=== PATIENT | male | born 1985 ===

== ENCOUNTER 2018-12-01 22:45 | Inpatient (IN) | payer SELFPAY ==
[2018-12-01] MEDS ORDERED: CEFAZOLIN 1 GM VIAL ONE (22:50)
[2018-12-01] MEDS ORDERED: Adacel (T-DAP) 0.5 ML SYRINGE ONE (22:50)
[2018-12-01] MEDS ORDERED: Ketamine 50 MG/ML (10ML VIAL) ONE (22:54)
[2018-12-01] MEDS ORDERED: Succinylcholine Chloride 20 MG/ML 10 ml SYRINGE FS ONE (22:58)
[2018-12-01] MEDS ORDERED: Propofol 1,000 MG/100 ML VIAL IV ONE (23:18)
--- NOTE | 2018-12-01 23:21 | RAD ---
FFrontal radiograph chest 12/01/2018 COMPARISON: None HISTORY: Intubated patient FINDINGS: Endotracheal tube terminates at the level the clavicular heads. Enteric tube extends into t he left upper quadrant. Supine imaging limits assessment for pneumothorax and pleural fluid. No focal consolidation or alveolar edema. IMPRESSION: Lines and tubes as above.
[2018-12-01 23:22] LABS: #Basophils 0.1 thou/uL (0.0-0.2); #Eosinphils 0.4 thou/uL (0.0-0.7); #Lymphocytes 3.5 thou/uL (1.20-3.40); #Monocytes 0.7 thou/uL (0.11-0.59); #Neutrophils 5.5 thou/uL (1.40-6.50); %Basophils 0.9 % (0.0-1.0); %Eosinophils 3.6 % (0.0-10.0); %Lymphocytes 34.8 % (21.0-51.0); %Monocytes 6.4 % (0.0-10.0); %Neutrophils 54.2 % (42.0-75.0); Mean Corpuscular Hemoglobin 31.7 pg (27.0-31.0); Mean Corpuscular Volume 90.7 fL (78.0-98.0); Mean Platelet Volume 6.7 fL (7.4-10.4); Platelet Count 350 thou/uL (130-400); RBC Distribution Width 11.4 % (11.5-14.5); Red Blood Cell (RBC) Count 5.03 mill/uL (4.70-6.10); White Blood Cell (WBC) Count 10.2 thou/uL (4.8-10.8)
--- NOTE | 2018-12-01 23:22 | RAD ---
F2 views of the left elbow: 12/01/2018 COMPARISON: None HISTORY: Injury, trauma, pain FINDINGS: Soft tissue injury is seen medially and posteriorly at the level of the elbow joint with so ft tissue swelling and probable laceration. Markedly comminuted and displaced fracture is seen medial ly involving the distal left humerus. On lateral examination there is a posteriorly displaced fractur e fragment measuring 1.1 cm. No evidence for elbow dislocation. IMPRESSION: Findings suggesting a markedly comminuted open fracture of the distal left humerus medial ly.
[2018-12-01] MEDS ORDERED: Fentanyl 100 MCG/2 ML VIAL ONE (23:37)
[2018-12-01 23:40] LABS: Acetaminophen Less than 6.0 mcg/mL (10.0-30.0); Alcohol 284 mg/dL (Less than 10); Salicylate Less than 8.0 mg/dL (15.0-30.0)
[2018-12-01 23:46] LABS: ALT (SGPT) 43 U/L (8-55); AST (SGOT) 41 U/L (5-34); Albumin 4.1 g/dL (3.5-5.0); Alkaline Phosphatase 104 U/L (40-150); Anion Gap 15 mmol/L (10-20); BUN (Urea Nitrogen) 10 mg/dL (8.9-20.6); Bilirubin, Total 0.4 mg/dL (0.2-1.2); Calc. Creatinine Clearance 0 mL/min (70-130); Calcium 8.6 mg/dL (7.8-10.44); Carbon Dioxide 22 mmol/L (22-29); Chloride 107 mmol/L (98-107); Estimated GFR-MDRD Greater than 90; Globulin 2.6 g/dL (2.4-3.5); Glucose 123 mg/dL (70-105); Potassium 3.8 mmol/L (3.5-5.1); Protein, Total 6.7 g/dL (6.0-8.3); Sodium 140 mmol/L (136-145)
[2018-12-01 23:53] LABS: Actual Bicarbonate (HCO3a) 20.3 mEq/L (22-28); Analyzer IN Cardio ER; Base Excess (BEa) -4.9 mEq/L (-2.0 to +3.0); CO2 Tension 38.4 mmHg (35.0-45.0); Calcium, Ionized 1.11 mmol/L (1.12-1.30); Carboxyhemoglobin (COHb) 0.9 gm% (0.0-3.0); O2 Tension (PaO2) 112.4 mmHg (80.0-100.0); Potassium - ABG Lab 3.89 mmol/L (3.70-5.30); pH, Arterial 7.34 (7.35-7.45)
[2018-12-02 00:11] LABS: Puncture Site LRA
[2018-12-02 00:38] LABS: Amphetamine Not Detected (NotDetected); Barbiturates Screen Not Detected (NotDetected); Benzodiazepine Screen Not Detected (NotDetected); Cocaine Metabolite Screen Not Detected (NotDetected); Medtox Control Line Valid? VALID (VALID); Medtox Reader # READER 4; Methadone Not Detected (NotDetected); Methamphetamine Not Detected (NotDetected); Opiate Screen Not Detected (NotDetected); Oxycodone Screen Not Detected (NotDetected); Phencyclidine (PCP) Not Detected (NotDetected); THC/Cannabinoid Screen Not Detected (NotDetected); Tricyclic Screen Not Detected (NotDetected)
[2018-12-02] MEDS ORDERED: Promethazine HCl 25 MG/ML VIAL IM PRN (00:45)
[2018-12-02] MEDS ORDERED: Ondansetron PF 4 MG/2 ML Vial IVP PRN (00:45)
[2018-12-02] MEDS ORDERED: Dextrose 50% Abboject 50 ML SYRINGE SLOW IVP PRN (00:45)
[2018-12-02] MEDS ORDERED: Dextrose 5% in Water 1,000 ML IV PRN (00:45)
[2018-12-02] MEDS ORDERED: hydrALAZINE 20 MG/ML VIAL SLOW IVP PRN (00:45)
[2018-12-02] MEDS: Sodium Chloride 0.9% 1,000 ML IV SCH ×4 (00:48→19:38)
[2018-12-02] MEDS ORDERED: Fentanyl BOLUS 250 ML IVPB PRN (01:07)
[2018-12-02] MEDS ORDERED: Morphine 2 MG/ML SYRINGE SLOW IVP PRN (01:07)
[2018-12-02] MEDS ORDERED: DISCONTINUE PREVIOUS NARCOTIC PAIN MEDICATIONS AND BENZODIAZEPINES FS SCH (01:07)
[2018-12-02] MEDS ORDERED: Propofol BOLUS 1,000 MG/100 ML VIAL IV PRN (01:07)
[2018-12-02] MEDS ORDERED: Calcium Chloride 1 GM/10 ML Abboject SYRINGE IVP SCH (01:15)
[2018-12-02] MEDS ORDERED: Ventilator Sedation Protocol 1 EACH FS SCH (01:15)
[2018-12-02 01:22] LABS: Magnesium 2.4 mg/dL (1.6-2.6); Phosphorus 3.5 mg/dL (2.3-4.7)
[2018-12-02] MEDS: Lorazepam 2 MG/ML VIAL SLOW IVP PRN ×4 (01:22→22:26)
[2018-12-02] MEDS: fentaNYL Citrate/PF 2,000 MCG in Sodium Chloride 0.9% 60 ML IV SCH ×2 (01:26→23:16)
[2018-12-02 01:29] LABS: Lactic Acid 2.1 mmol/L (0.5-2.2)
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
[2018-12-02 05:32] LABS: INR-International Normal Ratio 1.1
[2018-12-02] MEDS: Propofol 1,000 MG/100 ML VIAL IV PRN ×3 (05:32→19:52)
[2018-12-02] MEDS ORDERED: Acetaminophen 1,000 MG in Premix Bag 1 BAG IVPB SCH (07:00)
[2018-12-02] MEDS ORDERED: Fentanyl 100 MCG/2 ML VIAL ONE ×2 (07:12→08:16)
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
[2018-12-02] MEDS: Famotidine/PF 20 mg/2ml Vial SLOW IVP SCH ×2 (08:06→19:38)
[2018-12-02] MEDS ORDERED: Neomycin-Polymyxin 1 ML AMP ONE (08:12)
[2018-12-02] MEDS ORDERED: Midazolam HCl 2 mg/2 ml Vial ONE (08:16)
[2018-12-02] MEDS: CEFAZOLIN 2 GM in Premix Bag 1 BAG IVPB SCH ×2 (08:22→16:32)
--- NOTE | 2018-12-02 09:24 | RAD ---
LEFT HAND 3 VIEWS: Date: 12/02/18 HISTORY: Hand injury. FINDINGS: Soft tissue injury to the tip of the middle finger is seen. I do not see any underlying fracture. IMPRESSION: No evidence of fracture. POS: JÚNIOR
--- NOTE | 2018-12-02 09:38 | RAD ---
PORTABLE CHEST: DATE: 12/02/2018. PROVIDED CLINICAL HISTORY: Respiratory insufficiency. FINDINGS: Comparison 12/01/2018. Significant interval change with respect to the prior examination is not apparent. IMPRESSION: As above. POS: OFF
[2018-12-02] MEDS ORDERED: PROPOFOL 200 MG/20 ML VIAL ONE (10:39)
[2018-12-02] MEDS ORDERED: Rocuronium Bromide 10 MG/ML (10ML VIAL) ONE (10:39)
--- NOTE | 2018-12-02 11:36 | CT ---
FCT Upper Ext Lt WO Con History: Trauma to elbow Comparison: Plain film examination done yesterday. Findings: There is air present within the joint space with associated soft tissue injury. There is no evidence of elbow dislocation. The radiocapitellar joint is in normal alignment. There is an avulsive type fracture which is a thin linear fragment of bone, the donor site appears to be from the ulnar side of the olecranon, it is minimally displaced. There are tiny bony avulsions related to the lateral epicondyle of the distal humerus, this would sug gest a partial avulsion of the common extensor tendon. . There is a larger bony avulsion arising from the medial epicondyle of the humerus, this bone fragment is approximately 2 cm in size. It is avulsed by approximately 4 mm. This appears to arise from the m ore posterior aspect of the medial epicondyle. The fracture probably still does involve the common fl exor tendon origin and possibly the proximal attachment of the UCL. Impression: Elbow fractures as described above.
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
[2018-12-02] MEDS ORDERED: CEFAZOLIN 2 GM in Premix Bag 1 BAG IVPB SCH (14:00)
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
[2018-12-02] MEDS: Acetaminophen 1,000 MG in Premix Bag 1 BAG IVPB SCH ×2 (16:51→23:16)
[2018-12-02] MEDS: Ketorolac Tromethamine 30 MG/ML VIAL IVP SCH ×2 (16:51→23:16)
[2018-12-02 18:10] LABS: Bilirubin Negative (Negative); Blood, Urine Negative (Negative); Clarity CLEAR (Clear); Glucose, Urine (Dipstick) Negative (Negative); Leukocyte Small (Negative); Nitrite Negative (Negative); Protein, Urine (Dipstick) Negative (Neg-Trace); Specific Gravity, Urine 1.029 (1.002-1.036); Urobilinogen 0.2 mg/dL (0.2-1.0)
[2018-12-02 18:12] LABS: Bacteria/HPF None Seen HPF (None Seen); Hyaline Casts/LPF 0-3 HYALINE CAST LPF (0-3 Hyaline); Pathc Cast-AUWi Flag 0.13 (0-2.49); Squamous Epithelial 0-3 HPF (0-3)
[2018-12-02 18:16] LABS: Urine Culture Reflex Yes Yes
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
[2018-12-03] MEDS: CEFAZOLIN 2 GM in Premix Bag 1 BAG IVPB SCH ×4 (00:07→22:25)
[2018-12-03] MEDS: Propofol 1,000 MG/100 ML VIAL IV PRN ×2 (00:21→05:48)
[2018-12-03] MEDS: Sodium Chloride 0.9% 1,000 ML IV SCH ×3 (02:53→18:16)
[2018-12-03] MEDS: Acetaminophen 1,000 MG in Premix Bag 1 BAG IVPB SCH ×2 (05:04→11:46)
[2018-12-03] MEDS: Ketorolac Tromethamine 30 MG/ML VIAL IVP SCH ×2 (05:04→11:46)
[2018-12-03 06:44] LABS: #Basophils 0.1 thou/uL (0.0-0.2); #Eosinphils 0.3 thou/uL (0.0-0.7); #Lymphocytes 1.9 thou/uL (1.20-3.40); #Monocytes 0.7 thou/uL (0.11-0.59); #Neutrophils 3.8 thou/uL (1.40-6.50); %Basophils 0.8 % (0.0-1.0); %Lymphocytes 28.1 % (21.0-51.0); %Monocytes 10.5 % (0.0-10.0); %Neutrophils 55.6 % (42.0-75.0); Hemoglobin 11.3 g/dL (14.0-18.0); Mean Corpuscular HGB CONC 35.5 g/dL (32.0-36.0); Mean Corpuscular Hemoglobin 32.6 pg (27.0-31.0); Platelet Count 177 thou/uL (130-400); RBC Distribution Width 11.2 % (11.5-14.5); Red Blood Cell (RBC) Count 3.47 mill/uL (4.70-6.10); White Blood Cell (WBC) Count 6.9 thou/uL (4.8-10.8)
[2018-12-03 06:46] LABS: INR-International Normal Ratio 1.1; Prothrombin Time 14.1 SEC (12.0-14.7)
[2018-12-03 07:08] LABS: Anion Gap 12 mmol/L (10-20); BUN (Urea Nitrogen) 18 mg/dL (8.9-20.6); Calc. Creatinine Clearance 126 mL/min (70-130); Calcium 7.8 mg/dL (7.8-10.44); Carbon Dioxide 19 mmol/L (22-29); Chloride 109 mmol/L (98-107); Estimated GFR-MDRD Greater than 90; Glucose 86 mg/dL (70-105); Phosphorus 2.6 mg/dL (2.3-4.7); Potassium 3.6 mmol/L (3.5-5.1); Sodium 136 mmol/L (136-145)
[2018-12-03] MEDS ORDERED: Fentanyl 100 MCG/2 ML VIAL ONE ×2 (07:36→09:56)
[2018-12-03] MEDS ORDERED: Famotidine/PF 20 mg/2ml Vial ONE (07:36)
[2018-12-03] MEDS ORDERED: Neomycin-Polymyxin 1 ML AMP ONE ×2 (07:37→09:27)
--- NOTE | 2018-12-03 08:06 | RAD ---
FRadiograph chest one view: 12/03/2018 4:34 AM HISTORY: 33 year old male status post intubation COMPARISON: 12/02/2018 4:55 AM FINDINGS: Endotracheal tube and NG tube remain. No cardiomegaly. Mild infiltrate like density at right base cou ld represent subsegmental atelectasis or early pneumonia. This appears minimally worse than before. N o other interval change. No pneumothorax. IMPRESSION: Mild pulmonary density at right base has minimally worsened. No other interval change.
[2018-12-03] MEDS ORDERED: Ondansetron PF 4 MG/2 ML Vial ONE (09:50)
[2018-12-03] MEDS ORDERED: Rocuronium Bromide 10 MG/ML (10ML VIAL) ONE (09:50)
[2018-12-03] MEDS ORDERED: Midazolam HCl 2 mg/2 ml Vial ONE (09:56)
[2018-12-03] MEDS: Famotidine/PF 20 mg/2ml Vial SLOW IVP SCH ×2 (10:44→22:25)
--- NOTE | 2018-12-03 12:58 | PRG ---
DATE OF SERVICE: 12/03/2018 SUBJECTIVE: Mr. Saldaña is in no distress. OBJECTIVE: VITAL SIGNS: Heart rates in the 60s to 100 range, blood pressure 133/78, respiratory rates in the teens. NEURO: He follows commands now. He is cooperative. LUNGS: Clear. HEART: Regular rhythm. ABDOMEN: Soft. EXTREMITIES: Without edema. He went back to the OR today, was left intubated. LABORATORY DATA: White count 6.9, hemoglobin 11.3, and platelets 177,000. Sodium 136, potassium 3.6, chloride 109, bicarb 19, BUN 18, and creatinine 0.77. Chest x-ray is clear. IMPRESSION: Respiratory failure secondary to intubation in the field secondary to severe alcohol intoxication, psychotic behavior, appears to be calm and cooperative now. We will do a leak test. His minute volume is less than 10 L a minute. He has no secretion issues. He is otherwise young and healthy with a clear chest x-ray now, so he should extubate relatively quickly. CRITICAL CARE TIME: 30 minutes. Job ID: [id number]
[2018-12-03] MEDS ORDERED: traMADol HCl 50 MG TAB PO PRN ×2 (14:31)
[2018-12-03] MEDS ORDERED: Cyclobenzaprine 10 MG TAB PO PRN (14:31)
[2018-12-03] MEDS ORDERED: HYDROcodone/Acetaminophen 5/325 mg Tablet PO PRN (14:34)
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
[2018-12-03] MEDS: Acetaminophen 500 MG TAB PO SCH (18:16)
[2018-12-03] MEDS: Ibuprofen 800 MG TAB PO SCH (22:24)
[2018-12-04] MEDS: Acetaminophen 500 MG TAB PO SCH ×5 (00:58→23:52)
[2018-12-04] MEDS: Piperacillin/Tazobactam 3.375 GM in Sodium Chloride 0.9% 100 ML IVPB SCH ×5 (00:58→23:52)
[2018-12-04] MEDS: Sodium Chloride 0.9% 1,000 ML IV SCH (05:38)
[2018-12-04] MEDS: Ibuprofen 800 MG TAB PO SCH ×3 (05:38→21:33)
[2018-12-04] MEDS: CEFAZOLIN 2 GM in Premix Bag 1 BAG IVPB SCH (05:38)
[2018-12-04] MEDS: Famotidine/PF 20 mg/2ml Vial SLOW IVP SCH (10:59)
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
--- NOTE | 2018-12-04 15:41 | RAD ---
FRadiograph left foot 3 views: HISTORY: Traumatic pain FINDINGS: No fracture or dislocation IMPRESSION: Negative.
[2018-12-04] MEDS: Famotidine 20 MG TAB PO SCH (21:33)
[2018-12-04] MEDS: Oxazepam 10 MG CAP PO SCH (21:44)
[2018-12-05] MEDS: Oxazepam 10 MG CAP PO SCH ×3 (05:37→21:09)
[2018-12-05] MEDS: Acetaminophen 500 MG TAB PO SCH ×4 (05:37→23:05)
[2018-12-05] MEDS: Piperacillin/Tazobactam 3.375 GM in Sodium Chloride 0.9% 100 ML IVPB SCH ×4 (05:38→23:05)
[2018-12-05] MEDS: Ibuprofen 800 MG TAB PO SCH ×3 (05:39→21:09)
[2018-12-05] MEDS: Famotidine 20 MG TAB PO SCH ×2 (07:52→21:09)
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
[2018-12-06] MEDS: Piperacillin/Tazobactam 3.375 GM in Sodium Chloride 0.9% 100 ML IVPB SCH (05:27)
[2018-12-06] MEDS: Ibuprofen 800 MG TAB PO SCH ×2 (05:28→16:46)
[2018-12-06] MEDS: Oxazepam 10 MG CAP PO SCH ×3 (05:28→21:14)
[2018-12-06] MEDS: Acetaminophen 500 MG TAB PO SCH ×3 (05:28→19:43)
[2018-12-06] MEDS: Amoxicillin/Potassium Clav 875 MG TAB PO SCH ×2 (09:15→21:14)
[2018-12-06] MEDS: Famotidine 20 MG TAB PO SCH ×2 (09:15→21:14)
[2018-12-06] MEDS ORDERED: Midazolam HCl 2 mg/2 ml Vial ONE ×2 (11:12→11:15)
[2018-12-06] MEDS ORDERED: Fentanyl 100 MCG/2 ML VIAL ONE (11:12)
[2018-12-06] MEDS ORDERED: Ondansetron PF 4 MG/2 ML Vial ONE ×2 (11:15→12:18)
[2018-12-06] MEDS ORDERED: Bacitracin Zinc Ointment 30 gm TUBE ONE (11:20)
[2018-12-06] MEDS ORDERED: Lidocaine 1% (PF) 30 ML VIAL ONE (11:20)
[2018-12-06] MEDS ORDERED: Bupivacaine PF 0.5% 30 ML VIAL ONE (11:20)
[2018-12-06] MEDS ORDERED: Betamet Acet/Betamet Na Ph 30 MG/5 ML VIAL ONE (11:24)
[2018-12-06] MEDS ORDERED: Lidocaine 1% PF 5 ML VIAL ONE (12:18)
[2018-12-06] MEDS ORDERED: ePHEDrine 50 MG/ML VIAL ONE (12:18)
[2018-12-06] MEDS ORDERED: Succinylcholine Chloride 20 MG/ML 10 ml SYRINGE FS ONE (12:18)
[2018-12-06] MEDS ORDERED: Rocuronium Bromide 10 MG/ML (10ML VIAL) ONE (12:18)
[2018-12-06] MEDS ORDERED: Dexamethasone 20 MG/5 ML VIAL ONE (12:18)
[2018-12-06] MEDS ORDERED: Ketorolac Tromethamine 30 MG/ML VIAL ONE (12:18)
[2018-12-06] MEDS ORDERED: PROPOFOL 200 MG/20 ML VIAL ONE (12:18)
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
--- NOTE | 2018-12-06 17:22 | RAD ---
XR Elbow Lt 4 View STANDARD History: [Fracture] Comparison: Elbow examination December 02, 2018 Findings: Total of 3 fluoroscopic images were submitted. Multiple interfragmentary screws are seen wi thin the olecranon process. Medial humeral epicondylar compression screws are present. Impression: Fluoroscopy for surgical use.
[2018-12-06] MEDS ORDERED: Promethazine HCl 25 MG/ML VIAL IM PRN (17:28)
[2018-12-06] MEDS ORDERED: HYDROmorphone 2 MG/ML VIAL SLOW IVP PRN (17:28)
[2018-12-06] MEDS ORDERED: Ondansetron HCl/PF 4 MG/2 ML Vial IVP PRN (17:28)
[2018-12-06] MEDS ORDERED: Promethazine HCl 25 MG/ML VIAL SLOW IVP PRN (17:28)
[2018-12-06] MEDS ORDERED: PACU-Morphine 4MG/ML VIAL SLOW IVP PRN (17:28)
[2018-12-06] MEDS ORDERED: Morphine 4 MG/ML VIAL SLOW IVP PRN (18:04)
[2018-12-06] MEDS ORDERED: CEFAZOLIN 2 GM in Premix Bag 1 BAG IVPB SCH (18:15)
[2018-12-06] MEDS: HYDROcodone/Acetaminophen 7.5/325 mg Tablet PO PRN (19:30)
[2018-12-06] MEDS: Ketorolac Tromethamine 30 MG/ML VIAL IVP SCH (21:15)
[2018-12-06] MEDS: Vancomycin HCl 1 GM in Premix Bag 1 BAG IVPB SCH (21:15)
[2018-12-07] MEDS: Oxazepam 10 MG CAP PO SCH (05:23)
[2018-12-07] MEDS: Ketorolac Tromethamine 30 MG/ML VIAL IVP SCH ×2 (05:24→13:02)
[2018-12-07] MEDS: Famotidine 20 MG TAB PO SCH (08:14)
[2018-12-07] MEDS: Amoxicillin/Potassium Clav 875 MG TAB PO SCH (08:14)
[2018-12-07] MEDS: HYDROcodone/Acetaminophen 7.5/325 mg Tablet PO PRN (08:14)
[2018-12-07] MEDS: Vancomycin HCl 1 GM in Premix Bag 1 BAG IVPB SCH (08:15)
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
[2018-12-07] MEDS ORDERED: Ibuprofen 800 MG TAB PO SCH (14:00)
[2018-12-07 16:49] VITALS: BP 120/78; TEMP 98.3
[2018-12-07] MEDS ORDERED: Vancomycin HCl 1 GM in Premix Bag 1 BAG IVPB SCH (18:00)
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
== END 2018-12-07 19:08 | disposition home or self-care (01) | DRG 492 ==
LOC: ERS 22:45 → EEVIPCON 12-02 00:30 → CCU 12-02 00:30 → SURG A 12-04 18:38
PROVIDERS: ADMIT Specialist; ATTEND Specialist
PROC: 0BH17EZ Insertion of Endotracheal Airway into Trachea, Via Natural or Artificial Opening (ICD-10-PCS; 2018-12-01)
PROC: 5A1945Z Respiratory Ventilation, 24-96 Consecutive Hours (ICD-10-PCS; 2018-12-01)
PROC: 0XQT0ZZ Repair Left Ring Finger, Open Approach (ICD-10-PCS; 2018-12-02)
PROC: 0HDGXZZ Extraction of Left Hand Skin, External Approach (ICD-10-PCS; 2018-12-02)
PROC: 0PSG04Z Reposition Left Humeral Shaft with Internal Fixation Device, Open Approach (ICD-10-PCS; principal; 2018-12-06)
PROC: 0MQ40ZZ Repair Left Elbow Bursa and Ligament, Open Approach (ICD-10-PCS; 2018-12-06)
PROC: 0RQM0ZZ Repair Left Elbow Joint, Open Approach (ICD-10-PCS; 2018-12-06)
PROC: 0RU Upper Joints, Supplement (ICD-10-PCS; 2018-12-06)
PROC: 01U40JZ Supplement Ulnar Nerve with Synthetic Substitute, Open Approach (ICD-10-PCS; 2018-12-06)
DX: S42.442B Displaced fracture (avulsion) of medial epicondyle of left humerus, initial encounter for open fracture (principal); J96.00 Acute respiratory failure, unspecified whether with hypoxia or hypercapnia; S21.112A Laceration without foreign body of left front wall of thorax without penetration into thoracic cavity, initial encounter; X99.1XXA Assault by knife, initial encounter; F10.129 Alcohol abuse with intoxication, unspecified; Z23 Encounter for immunization; S44.02XA Injury of ulnar nerve at upper arm level, left arm, initial encounter; S61.215A Laceration without foreign body of left ring finger without damage to nail, initial encounter; S11.91XA Laceration without foreign body of unspecified part of neck, initial encounter; Y90.8 Blood alcohol level of 240 mg/100 ml or more; S53.492A Other sprain of left elbow, initial encounter; S41.012A Laceration without foreign body of left shoulder, initial encounter; S21.212A Laceration without foreign body of left back wall of thorax without penetration into thoracic cavity, initial encounter; I95.9 Hypotension, unspecified
CPT/HCPCS: 31500; 36415; 36416; 51702; 71045; 74018; 76000; 76377; 80048; 80053; 80306; 80307; 81001; 82805; 83605; 83735; 84100; 85025; 85610; 86850; 86900; 86901; 87040; 87070; 87086; 87205; 90471; 90715; 94002; 94003; 96365; 96367; 96375; C1713; G0390; J0131; J0690; J0702; J1100; J1885; J2001; J2060; J2250; J2405; J2543; J2704; J3010; J3370; J3490; S0020; S0028